=== PATIENT | male | born 1975 | race Caucasian/White ===

== ENCOUNTER 2016-11-21 18:45 | Emergency (ER) | payer SELFPAY ==
--- NOTE | 2016-11-29 11:03 | ER ---
ADMIT: 11/21/2016 RM/LOC: ER [facility] MR#: [id number] [address] [id number] JESSICA WARREN [address] [address] Emergency Room Report SEX: M AGE: 41 : 1975 DATE: 11/21/2016 CHIEF COMPLAINT: Toothache. HISTORY OF PRESENT ILLNESS: A 41-year-old male, who presents to the ER with worsening tooth pain. States he was in a [facility] today for evaluation of a tooth that has been bothering him for the past 3 days. He was unable to see provider. He was scheduled to be seen in followup for dental scheduling. He was placed on amoxicillin for possible concern of an abscess. He was not provided any pain medication. Presents here by encouragement of the counselor. Worsened with hot, cold, chewing, relieved by nothing at this point. He has been using ibuprofen 800 mg [id number] as needed. Denies fevers, chills, runny nose, congestion, cough, ear ache, facial pain, swelling of jaw. PAST MEDICAL HISTORY: Hepatitis C. COURSE IN THE EMERGENCY ROOM: The patient was seen and examined. Afebrile. Nontoxic. No acute distress. He does have some cervical lymphadenopathy. Examination of the mouth does show a darkened tender to the touch dark tooth #10. PHYSICAL EXAMINATION: Otherwise unremarkable. PROCEDURE: Dental block. The patient was anesthetized using topical lidocaine. He was injected with 2 mL of bupivacaine 0.25 with epi. Pain was improved. He was ready for discharge. IMPRESSION: Toothache. DISPOSITION: The patient was discharged. Tramadol 50 mg p.o. every 6 hours as needed for pain #30. He is also encouraged to continue to follow up with [facility] to continue to schedule his dental care. Certainly return with any worsening signs or symptoms and with high fever, any systemic infection. Continue amoxicillin as prescribed. Questions sought and answered to the best of my ability and to the patient's satisfaction. Discharged home in stable condition. CRYS Alexander / Sacha Mesa MD / florian JOB #: [id number] CC: Sacha Mesa MD, Attending Physician Benjamin Castro MD, Family Physician
== END 2016-11-21 19:56 | disposition home or self-care (01) ==
LOC: ER 18:45
PROC: 3E0T3BZ Introduction of Anesthetic Agent into Peripheral Nerves and Plexi, Percutaneous Approach (ICD-10-PCS; principal; 2016-11-21)
DX: K08.89 Other specified disorders of teeth and supporting structures (principal); Z86.19 Personal history of other infectious and parasitic diseases